=== PATIENT | male | born 1935 | race Caucasian/White ===

== ENCOUNTER 2018-06-03 13:41 | Emergency (ER) | payer MEDICARE ==
[~2018-06-03] VITALS: Ht 175.3 cm; Wt 88.6 kg
[~2018-06-03 13:41] MED LIST: DOCU100C41 PO
[2018-06-03 13:49] VITALS: BP 118/65
[2018-06-03] MEDS ORDERED: tetanus & diphtheria toxoid (Td) vaccine 0.5ml IMVAC ONE (15:25)
[2018-06-03] MEDS ORDERED: TETanus/Pertussis (Acell)/Diphther VAC/PF (Tdap-Adult) 0.5ml syringe IMVAC ONE (15:30)
--- NOTE | 2018-06-03 15:53 | NUR ---
APPLIED ARM IMMOBILIZER TO LEFT ARM
== END 2018-06-03 15:54 | disposition home or self-care (01) ==
LOC: ER 13:42
DX: S40.012A Contusion of left shoulder, initial encounter (principal); S09.90XA Unspecified injury of head, initial encounter; I48.91 Unspecified atrial fibrillation; I10 Essential (primary) hypertension; E11.42 Type 2 diabetes mellitus with diabetic polyneuropathy; Z79.01 Long term (current) use of anticoagulants; W19.XXXA Unspecified fall, initial encounter; Y93.89 Activity, other specified; Y92.89 Other specified places as the place of occurrence of the external cause; Y99.9 Unspecified external cause status
CPT/HCPCS: 29105; 70450; 73030; 73502; 90471; 90715; 93005; 99284

== ENCOUNTER 2018-12-16 08:43 | Emergency (ER) | payer MEDICARE ==
[~2018-12-16] VITALS: Ht 177.8 cm; Wt 85.7 kg
--- NOTE | 2018-12-16 09:20 | NUR ---
Break RN; Dr Rios in room for exam. Plan of care to do xrays of elbow and sacrum, numb wound, clean it and attempt to pull skin over the wound. Trauma status lifted per MD.
[2018-12-16] MEDS ORDERED: TETanus/Pertussis (Acell)/Diphther VAC/PF (Tdap-Adult) 0.5ml syringe IM ONE (09:25)
[2018-12-16] MEDS ORDERED: LIDOcaine/epinephrine TOPICAL 5 ML BTL TOP ONE (09:25)
[2018-12-16 11:10] VITALS: BP 124/68
--- NOTE | 2018-12-16 11:11 | NUR ---
BREAKING PRIMARY RN, PT IS SITTING UP ON GURNEY, PACKING TO RT NARE IN PLACE, TALKING TO MALE IN ROOM, NO S/S OF ACUTE DISTRESS VSS
[2018-12-16] MEDS ORDERED: phytonadione 10 MG/1 ML amp PO ONE (12:55)
[2018-12-16] MEDS ORDERED: MEP5T PO (13:02)
== END 2018-12-16 13:40 | disposition home or self-care (01) ==
LOC: ER 08:43
DX: S51.812A Laceration without foreign body of left forearm, initial encounter (principal); I48.91 Unspecified atrial fibrillation; D68.9 Coagulation defect, unspecified; M54.2 Cervicalgia; I10 Essential (primary) hypertension; E11.9 Type 2 diabetes mellitus without complications; Z87.891 Personal history of nicotine dependence; Z79.899 Other long term (current) drug therapy; W01.0XXA Fall on same level from slipping, tripping and stumbling without subsequent striking against object, initial encounter; Y93.89 Activity, other specified; Y92.89 Other specified places as the place of occurrence of the external cause; Y99.8 Other external cause status
CPT/HCPCS: 36415; 72170; 72220; 73080; 73120; 73130; 85610; 93005; 99284; J3430

== ENCOUNTER 2019-06-16 16:17 | Emergency (ER) | payer MEDICARE ==
[~2019-06-16] VITALS: Ht 177.8 cm; Wt 90.1 kg
[~2019-06-16 16:17] MED LIST changes: +COU2.5T PO; -DOCU100C41 PO; +DONE23TA7 PO; +FURO-149 PO; +GABA-530 PO; +LISI-600 PO; +METF-436 PO; +PIOG15TA8 PO; +ROSU5TAB PO
--- NOTE | 2019-06-16 16:27 | NUR ---
daughter dominique [phone]
[2019-06-16 17:05] LABS: BASOPHILS % (AUTO) 0.5 % (0-1); EOSINOPHILS # (AUTO) 0.1 X10'3 (0-0.9); EOSINOPHILS % (AUTO) 1.3 % (0-6); HEMATOCRIT 37.9 % (42.0-52.0); HEMOGLOBIN 12.3 g/dl (14.0-17.9); LYMPHOCYTES # (AUTO) 1.3 X10'3 (1.1-4.8); LYMPHOCYTES % (AUTO) 25.5 % (21-51); MEAN CORPUSCULAR HGB CONC 32.3 g/dL (33.0-36.5); MEAN CORPUSCULAR VOLUME 89.5 FL (78-98); MEAN PLATELET VOLUME 10.3 FL (7.4-10.4); MONOCYTES # (AUTO) 0.4 X10'3 (0-0.9); NEUTROPHILS # (AUTO) 3.2 X10'3 (1.8-7.7); NEUTROPHILS % (AUTO) 64.7 % (42-75); PLATELET COUNT 157 X10'3 (140-440); RED BLOOD COUNT 4.23 X10'6 (4.70-6.10); RED CELL DISTRIBUTION WIDTH 17.2 % (11.5-14.5); WHITE BLOOD COUNT 4.9 X10'3 (4.5-11.0)
[2019-06-16 17:16] LABS: ALANINE AMINOTRANSFERASE 11 U/L (12-78); ALBUMIN 3.5 G/DL (3.4-5.0); ALKALINE PHOSPHATASE 90 IU/L (46-116); ANION GAP 7 (8-16); ASPARTATE AMINO TRANSFERASE 15 U/L (10-37); BILIRUBIN,TOTAL 0.7 MG/DL (0.1-1.0); BLOOD UREA NITROGEN 16 MG/DL (7-18); BUN/CREATININE RATIO 17.6 (5.4-32.0); CALCIUM 8.8 MG/DL (8.5-10.1); CHLORIDE 105 MMOL/L (99-107); CREATININE 0.91 MG/DL (0.60-1.10); GLUCOSE 164 MG/DL (70-104); SODIUM 140 MMOL/L (135-145); TOTAL CARBON DIOXIDE 28.1 MMOL/L (24-32); eGFR 80 ML/MIN
[2019-06-16 17:22] LABS: MAGNESIUM 1.5 MG/DL (1.5-2.4)
[2019-06-16] MEDS ORDERED: furosemide 20MG tablet PO ONE (17:40)
[2019-06-16 18:25] VITALS: BP 106/61
== END 2019-06-16 18:26 | disposition home or self-care (01) ==
LOC: ER 16:18
DX: T82.9XXA Unspecified complication of cardiac and vascular prosthetic device, implant and graft, initial encounter (principal); R60.9 Edema, unspecified; I50.9 Heart failure, unspecified; I11.0 Hypertensive heart disease with heart failure; E11.42 Type 2 diabetes mellitus with diabetic polyneuropathy; I48.91 Unspecified atrial fibrillation; Z79.899 Other long term (current) drug therapy
CPT/HCPCS: 36415; 71045; 80053; 83735; 83880; 84484; 85025; 93005; 99285

== ENCOUNTER 2019-06-18 08:11 | Emergency (ER) | payer MEDICARE ==
[~2019-06-18] VITALS: Ht 177.8 cm; Wt 88.6 kg
--- NOTE | 2019-06-18 08:12 | NUR ---
[place] [phone]. CALL FOR ANY QUESTIONS. WILL PICK PT UP WHEN DC
[2019-06-18 08:14] VITALS: BP 103/53
== END 2019-06-18 08:45 | disposition home or self-care (01) ==
LOC: ER 08:12
DX: T82.897A Other specified complication of cardiac prosthetic devices, implants and grafts, initial encounter (principal); Z48.01 Encounter for change or removal of surgical wound dressing; I48.91 Unspecified atrial fibrillation; I10 Essential (primary) hypertension; E11.42 Type 2 diabetes mellitus with diabetic polyneuropathy; F03.90 Unspecified dementia, unspecified severity, without behavioral disturbance, psychotic disturbance, mood disturbance, and anxiety; Z79.899 Other long term (current) drug therapy; Y83.9 Surgical procedure, unspecified as the cause of abnormal reaction of the patient, or of later complication, without mention of misadventure at the time of the procedure; Y92.89 Other specified places as the place of occurrence of the external cause
CPT/HCPCS: 99284